=== PATIENT | male | born 1955 | race African-American/Black ===

== ENCOUNTER 2017-02-10 01:00 | Emergency (ER) | payer SELFPAY ==
[~2017-02-10] VITALS: Ht 190.5 cm; Wt 108.9 kg
[2017-02-10 03:29] LABS: BASOPHILS % 0.6 % (0.0-2.0); EOSINOPHILS % 3.3 % (0.0-5.0); HEMATOCRIT. 38.5 % (42.0-52.0); HEMOGLOBIN. 12.6 g/dL (14.0-18.0); LYMPHOCYTES % 24.3 % (20.0-50.0); MEAN CORPUSCULAR HEMOGLOBIN 31.2 pg (28.0-32.0); MEAN CORPUSCULAR HGB CONC 32.8 g/dL (31.0-37.0); MEAN CORPUSCULAR VOLUME 94.9 fL (80.0-94.0); MEAN PLATELET VOLUME 9.2 fl (7.4-10.4); MONOCYTES % 11.7 % (2.0-8.0); NEUTROPHILS % 60.1 % (40.0-76.0); PLATELET 217 x1000/uL (130-400); RED BLOOD CELL COUNT 4.06 mill/uL (4.7-6.1); RED CELL DISTRIBUTION WIDTH 13.8 % (11.6-14.6); WHITE BLOOD COUNT 5.9 x1000/uL (4.5-11.0)
[2017-02-10 03:34] LABS: ALANINE AMINOTRANSFERASE 22 IU/L (13-61); ALBUMIN 3.6 g/dL (3.4-5.0); ANION GAP 10; CALCIUM 8.6 mg/dL (8.5-10.1); CARBON DIOXIDE 30 mEq/L (21-32); CHLORIDE 107 mEq/L (98-107); INDEX HEMOLYSI 1 (1-3); INDEX ICTERIC 1 (1-4); INDEX LIPEMIC 1 (1-3); NT PRO B-TYPE NATRIURETIC PEP 7 pg/mL (5-125); TROPONIN I < 0.02 ng/mL (0.00-0.04); eGFR > 60 mL/min (>60)
[2017-02-10 03:55] LABS: UREA NITROGEN BLOOD 18 mg/dL (7-21)
[2017-02-10 05:16] VITALS: BP 105/59
== END 2017-02-10 05:53 | disposition home or self-care (01) ==
LOC: ER 01:01
DX: R07.89 Other chest pain (principal); Z85.46 Personal history of malignant neoplasm of prostate
CPT/HCPCS: 36415; 71010; 80053; 83880; 84484; 85025; 85379; 93005; 99285

== ENCOUNTER 2020-06-29 05:05 | Emergency (ER) | payer OTHER ==
[~2020-06-29] VITALS: Ht 188 cm; Wt 17.0 kg
[2020-06-29 06:05] LABS: BASOPHILS % 0.7 % (0.0-2.0); EOSINOPHILS % 2.8 % (0.0-5.0); HEMATOCRIT. 40.4 % (42.0-52.0); HEMOGLOBIN. 13.3 g/dL (14.0-18.0); LYMPHOCYTES % 34.3 % (20.0-50.0); MEAN CORPUSCULAR HEMOGLOBIN 31.7 pg (28.0-32.0); MEAN CORPUSCULAR VOLUME 96.2 fL (80.0-94.0); MEAN PLATELET VOLUME 8.8 fl (7.4-10.4); MONOCYTES % 12.1 % (2.0-8.0); NEUTROPHILS % 50.1 % (40.0-76.0); PLATELET 243 x1000/uL (130-400)
[2020-06-29 06:12] LABS: CHLORIDE 107 mEq/L (98-107)
[2020-06-29] MEDS ORDERED: MORPHINE SULFATE 4 MG/ML CPJ (NOT FOR IM USE) IV STA (06:25)
[2020-06-29 09:00] VITALS: BP 128/94
== END 2020-06-29 09:56 | disposition home or self-care (01) ==
LOC: ER 05:05
DX: R07.89 Other chest pain (principal); Z85.46 Personal history of malignant neoplasm of prostate; Z98.890 Other specified postprocedural states
CPT/HCPCS: 36415; 71045; 80053; 83880; 84484; 85025; 93005; 96374; 99285; J2270